=== PATIENT | male | born 1930 | race African-American/Black ===

== ENCOUNTER 2017-08-05 11:07 | Inpatient (IN) | payer MEDICARE, BC ==
[~2017-08-05] VITALS: Ht 152.4 cm; Wt 72.1 kg
[~2017-08-05 11:07] MED LIST: AVAGE30 GM; BLOOD PRESSURE PILL; KEFLEX500 MG PO; TOBRADEX ST EYE5 ML OP
[2017-08-05 11:08] VITALS: BP 145/77
[2017-08-05] MEDS ORDERED: LOSARTAN POTASS50 MG PO (11:13)
[2017-08-05 11:35] LABS: HEMATOCRIT 38.5 % (42.0-52.0); HEMOGLOBIN 12.1 gm/dL (14.0-18.0); MCH 27.5 pg (26.0-34.0); MCHC 31.6 g/dL (28.0-37.0); MCV 87.3 fL (80.0-100.0); NUCLEATED RBCS 0 /100WBC; PLATELET COUNT* 245 thou/uL (150-400); RBC 4.41 mil/uL (4.50-6.00); RDW-CV 16.4 % (10.5-14.5); WBC 14.5 thou/uL (4.0-11.0)
[2017-08-05 11:45] LABS: ANION GAP 11 mmol/L (7-16); BUN 28 mg/dL (7-18); CALCIUM 8.5 mg/dL (8.5-10.1); CHLORIDE 106 mmol/L (98-107); CO2 25 mmol/L (21-32); CREATININE 1.5 mg/dL (0.6-1.3); GLUCOSE 97 mg/dL (70-99); POTASSIUM 3.6 mmol/L (3.5-5.1); SODIUM 142 mmol/L (136-145)
[2017-08-05 11:52] LABS: ALBUMIN 3.4 g/dL (3.4-5.0); ALKALINE PHOSPHATASE 114 U/L (46-116); LIPASE 112 U/L (73-393); MAGNESIUM 2.1 mg/dL (1.8-2.4); SGOT 41 U/L (15-37); SGPT 21 U/L (30-65); TOTAL BILIRUBIN 0.7 mg/dL (<0.1-1.0); TROPONIN-I LEVEL <0.06 ng/mL (<0.06)
[2017-08-05 11:54] LABS: ABSOLUTE LYMPHOCYTES 1.5 thou/uL (0.8-5.3); ABSOLUTE MONOCYTES 0.1 thou/uL (0.0-1.2); ABSOLUTE NEUTROPHILS 12.9 thou/uL (1.6-8.1); ATYPICAL LYMPHS 2 %; PLATELET ESTIMATE ADEQUATE
[2017-08-05 13:39] VITALS: BP 139/72
[2017-08-05 14:28] VITALS: BP 176/74
[2017-08-05 17:00] LABS: INFLUENZA A ANTIGEN None Detected (None Detect); INFLUENZA B ANTIGEN None Detected (None Detect)
--- NOTE | 2017-08-05 17:32 | NUR ---
PT ARRIVED ON UNIT FROM ER AT 1415 ASSISSTED TO BED ORIENTED TO SURROUNDINGS. PT ALERT AND ORIENTED X4 VS AND ASSESSMENT STABLE. PT DENIED ANY COMPLAINTS WILL MONITOR.
[2017-08-05 20:45] VITALS: BP 130/63
[2017-08-05 23:39] VITALS: BP 147/56
[2017-08-06 05:06] LABS: ABSOLUTE EOSINOPHILS 0.1 thou/uL (0.0-0.7); ABSOLUTE LYMPHOCYTES 1.1 thou/uL (0.8-5.3); ABSOLUTE MONOCYTES 0.6 thou/uL (0.0-1.2); ABSOLUTE NEUTROPHILS 8.9 thou/uL (1.6-8.1); BASOPHILS 0.3 %; EOSINOPHILS 0.5 %; HEMOGLOBIN 10.2 gm/dL (14.0-18.0); LYMPHOCYTES 10.6 %; MCH 28.5 pg (26.0-34.0); MCV 86.3 fL (80.0-100.0); MPV 6.9 fl. (7.2-11.1); NUCLEATED RBCS 0 /100WBC; PLATELET COUNT* 221 thou/uL (150-400); POLYS 82.6 %; RBC 3.59 mil/uL (4.50-6.00); RDW-CV 16.1 % (10.5-14.5); WBC 10.7 thou/uL (4.0-11.0)
[2017-08-06 05:13] VITALS: BP 111/60; BP 111/62; BP 140/92
[2017-08-06 05:34] LABS: CALCIUM 7.5 mg/dL (8.5-10.1); CREATININE 1.3 mg/dL (0.6-1.3); POTASSIUM 3.7 mmol/L (3.5-5.1)
--- NOTE | 2017-08-06 06:19 | NUR ---
PATIENT HAS SLEPT WELL THROUGHOUT THE NIGHT WITHOUT ANY ISSUES. NO C/O PAIN. VSS ON RA. PATIENT HAS BEEN INCONTINENT OF URINE THROUGHOUT THE SHIFT AND SON CARE PERFORMED. IV IN RIGHT AC-NS @ 100ML/HR. IV ABT GIVEN WITHOUT ANY ADVERSE SIDE EFFECTS NOTE. PATIENT EATING AND DRINKING WELL. NO BM NOTED THIS SHIFT. PATIENT INSTRUCTED TO USE CALL LIGHT WHEN NEEDING ASSISTANCE. HOURLY ROUNDS MADE. WILL CONTINUE WITH PLAN OF CARE AND NURSING TO MONITOR.
[2017-08-06 08:00] VITALS: BP 145/58
[2017-08-06 11:49] LABS: URINE BILIRUBIN NEGATIVE (Negative); URINE BLOOD 1+ (Negative); URINE CLARITY CLOUDY; URINE COLOR YELLOW; URINE GLUCOSE-RANDOM NEGATIVE (Negative); URINE KETONES NEGATIVE (Negative); URINE NITRITE-REFLEX NEGATIVE (Negative); URINE PROTEIN NEGATIVE (Negative); URINE SPECIFIC GRAVITY 1.025 (1.005-1.030); URINE UROBILINOGEN 0.2 E.U./dl (0.2-1.0)
[2017-08-06 11:50] LABS: URINE LEUKOCYTES-REFLEX 2+ (Negative)
[2017-08-06 12:06] LABS: CASTS None Seen /LPF (None Seen); URINE RBC 0-2 Rare /HPF (0-2); URINE WBC-REFLEX >25 Many /HPF (0-5); WBC CLUMPS Moderate (None Seen)
[2017-08-06 12:07] LABS: CALCIUM OXALATE 4-10 Moderate /LPF (None Seen); SQUAMOUS 0-3 Few /LPF (0-3)
--- NOTE | 2017-08-06 13:06 | EKG ---
[place] [address] ELECTROCARDIOGRAM REPORT Name: BERENICEKAYLEIGH I Room: [address] ADM IN .R.#: [id number] Admission: 08/05/17 Attend Phys: Alexis Woodard MD Discharge: Date of : 32 Report #: [id number] THIS REPORT FOR: //name// [facility] ED Test Date: 2017-08-05 Test Time: 11:13:22 Pat Name: KAYLEIGH NG Department: Room: [facility] Gender: M Construction Mgr: MS : 1930 Requested By: Paul Taylor Order Number: [id number] MD: Raymundo Alaniz Measurements Intervals [place] Rate: 74 P: 2 NJ: 226 QRS: -7 QRSD: 87 T: 30 QT: 398 QTc: 442 Interpretive Statements Sinus rhythm Prolonged [place] interval Probable left atrial enlargement Nonspecific ST depression, anterior leads Minimal ST elevation, anterior leads No previous ECG available for comparison Electronically Signed On 08-06-2017 13:06:40 QUALITY ASSURANCE TESTER by Raymundo Alaniz [email or web address] <ELECTRONICALLY SIGNED> By: Raymundo Alaniz MD, FACLorna 08/06/17 1306 1113 1113 Raymundo Alaniz MD, [facility] /EPI
--- NOTE | 2017-08-06 15:21 | NUR ---
CM SPOKE TO THE PATIENT TO DISCUSS HOME SITUATION, DISCHARGE PLANNING, AND TO INFORM OF THE ROLE OF CM. PATIENT ALERT, BUT FORGETFUL. PATIENTS DTR AT THE BEDSIDE AND ANSWERING QUESTIONS FOR HIM. PATIENT RESIDES AT HOME WITH HIS AND DTR. PATIENT ABLE TO BATH HIMSELF INDEPENDENTLY UP UNTIL A FEW DAYS PRIOR TO ADMISSION. PATIENTS DTR STATES THAT THE PATIENT HAS TWO FALLS WITH IN THE LAST WEK. PATIENT USES A WALKER OR CANE FOR MOBILITY AT HOME, BUT USES A WHEELCHAIR IN PUBLIC OR FOR LONG DISTANCES. PATIENT HAS NO HX OF OR SNF. CM INFORMED THE PATIENT AND HIS DTR ABOUT DR GIL'S RECOMMENDATION OF SNF PLACEMENT AT DISCHARGE. PATIENT DTR STATES THAT THE PATIENTS WILL BE THE ONE MAKING THAT DECISION AND SHE WILL COME TO THE HOSPITAL LATER ON TODAY. CM PROVIDED THE PATIENT AND HIS DTR WITH A SNF LIST AND INFORMED THAT CM WILL FOLLOW-UP TO DISCUSS CHOICE OF SNF PLACEMENT. CM WILL REMAIN AVAILABLE TO ASSIST AND FOLLOW NEEDED.
[2017-08-06 16:00] VITALS: BP 153/67
--- NOTE | 2017-08-06 18:32 | NUR ---
ASSUMED CARE OF PT AT 0730. PT CONTINUES TO BE ALERT AND COOPERATIVE. PT HAS HAD NO C/O PAIN OR DISCOMFORT TODAY. PT IS DIFFICULT TO UNDERSTAND D/T SLURING AND MUMBELING WHEN HE TALKS, MOST LIKELY RELATED TO AGE AND DEMENTIA. PT HAS AHD A GOOD APPETITE AND AT GREATER THAN 90% OF ALL MEALS TODAY. PT VOIDONG VIA URINAL BUT DID HAVE 2 EPISODES OF INCONT OF BLADDER. PT CURRENTLY OFF UNIT FOR MRI. NURSING WILL CONTINUE TO MONITOR.
[2017-08-06 21:00] VITALS: BP 142/63
[2017-08-07 00:11] VITALS: BP 149/66
--- NOTE | 2017-08-07 05:13 | NUR ---
PATIENT HAS REMAINED ALERT AND ORIENTED X 2-3 THROUGHOUT THE SHIFT, FORGETFUL, PLEASANT AND COOPERATIVE. USING URINAL INDEPENDENTLY. DECLINING FULL TURNS. IS SELF ADJUSTING TO SOME DEGREE. HAS DENIED PAIN. IVF'S AND ANTIBIOTICS PER ORDERS. NOTING PATIENT SPITTING PHELGM IN TISSUES OVERNIGHT. OCCASSIONAL LOOSE COUGH. VITAL SIGNS STABLE. CONTINUE TO MONITOR.
[2017-08-07 08:33] VITALS: BP 154/78
--- NOTE | 2017-08-07 12:34 | NUR ---
SPOKE WITH ,RICCARDO,ON PHONE. DISCUSSED DICHARGE PLANNING. SHE WAS AGREEABLE TO SNF AND POSSIBLY [facility]. SHE WOULD LIKE CM TO MAKE A REFERRAL TO [facility]. SPOKE WITH [facility] AND FAXED REFERRAL TO HER. SHE WILL REVIEW.
--- NOTE | 2017-08-07 13:34 | NUR ---
[facility] HERE TO VISIT PT. SHE SAID MEDICALLY THEY CAN ACCEPT PT. THEY ARE CHECKING TO SEE IF HE HAS USED ANY MEDICARE INSURANCE DAYS AT ANY OTHER SKILLED FACILITY. SHE WILL CALL CM BACK.
[2017-08-07 16:05] VITALS: BP 148/75
--- NOTE | 2017-08-07 18:57 | NUR ---
ASSUMED CARE OF PATIENT AFTER MORNING REPORT. ALERT AND ORIENTED X2-3. ASSESSMENT COMPLETED AND IS CHARTED. VSS ON ROOM AIR. PATIENT HAS HAD NO COMPLAINTS OF PAIN OR NAUSEA THIS SHIFT. ANTIBIOTICS INFUSED ORDERED. HOURLY ROUNDS HAVE BEEN MAINTAINED. CALL LIGHT IS WITHIN REACH. NURSING WILL CONTINUE TO MONITOR.
[2017-08-07 21:00] VITALS: BP 202/91
[2017-08-08 00:38] VITALS: BP 174/79
[2017-08-08 04:06] VITALS: BP 142/66
--- NOTE | 2017-08-08 05:26 | NUR ---
PATIENT RESTED QUIETLY IN BED DURING NIGHT. NO C/O N/V OR PAIN. B/P ELEVATED AND DR NOTIFIED. NEW ORDERS DONE AND HELPFUL. PLEASANT AND COOPERATIVE WITH STAFF. INCONTINENT OF URINE. CALL LIGHT WITHIN REACH. WILL CONTINUE TO MONITOR.
[2017-08-08 08:00] VITALS: BP 146/67
[2017-08-08] MEDS ORDERED: AMPICILLIN TRI250 MG PO (10:06)
--- NOTE | 2017-08-08 11:11 | NUR ---
EVELIN SPOKE WITH [facility] ON HER CELL PHONE. SHE SAID THE MEDICARE VERIFICATION LINE WAS DOWN YESTERDAY SO COULD NOT VERIFY MEDICARE FOR PT. SHE WOULD LIKE FOR PT.'S TO CALL HER TO CONFIRM PT.HAS MEDICARE AND SECONDARY INSURANCE. AFTER SHE HEARS FROM ,THEY COULD ACCEPT PT. TO A SNF BED FIRST THEN IF DECIDED HE COULD GO TO A LTC BED THERE. EVELIN CALLED RICCARDO AT HOME. GAVE HER [facility]'S PHONE NUMBER. SHE SAID SHE WOULD CALL HER SHORTLY. EVELIN WILL WAIT TO HEAR BACK FROM [facility].
--- NOTE | 2017-08-08 16:20 | NUR ---
CALLED [facility] BACK. SHE SAID SHE HAD SPOKE TO . VERIFIED THEY HAVE MEDICARE AND ARE NOT CHANGING TO ANY OTHER INSURANCE AT THE FIRST OF THE YEAR. [facility] SAID THEY CAN ACCEPT PT.TO A SNF BED BUT TOLD HER HE'S NOT GOING ANYWHERE UNTIL THURSDAY. CM CALLED AT HOME. SAID 'I WANT HIM TO STAY UNTIL THURSDAY. IT IS INCONVENIENT FOT HER TO COME TO THE HOSPITAL. ALL MY CHILDREN ARE BUSY AND I DON'T EXPECT THEM TO BRING ME UP THERE' EXPLAINED ALTHOUGH, I KNOW SHE WANTS TO BE HERE WITH HIM, IT IS NOT NECESSARY FOR HER TO BE HERE WHEN HE GOES TO [facility]. EXPLAINED SHE MAY LOOSE THE BED AT [facility] IF PT.DOES NOT DISCHARGE TODAY. DISCUSSED PT.NOT MEETING INPT.CRITERIA TO BE IN HOSPITAL. SHE JUST KEPT SAYING ,NO HE NEEDS TO STAY UNTIL THURSDAY. EXPLAINED DISCHARGE APPEAL PROCESS AND GAVE HER NUMBER TO [facility]. SHE SAID SHE WOULD CALL RIGHT AWAY.
--- NOTE | 2017-08-08 16:29 | NUR ---
NOTIFIED OF 'S INTENTION OF APPEALING DISCHARGE SHE DOES NOT WANT HIM TO LEAVE UNTIL THURSDAY. TO CALL . PT.'S COULD NOT HEAR OVER THE PHONE. SHE ASKED THAT HE CALL DAUGHTER TARA. FRIEND OF TARA'S IN ROOM VISITING PT. SHE GAVE ME PHONE NUMBER OF [phone]. CM CALLED TARA FOR . EXPLAINED SITUATION. SHE SAID SHE WOULD DISCUSS WITH HER MOM BUT IT WOULD BE ABOUT AN HR. BEFORE SHE COULD DO SO, SHE WAS PICKING UP HER GRANDSON. [facility] NOTIFIED ON WORK CELL ([phone].) SHE SAID PT.COULD COME TOMORROW TO THEIR FACILITY IF CHANGES HER MIND ABOUT APPEAL. NURSING NOTIFIED.
--- NOTE | 2017-08-08 16:51 | NUR ---
TRANSFERRED PATIENT FROM ROOM 105 UP TO ROOM 310 AT 1600. CALL LIGHT IS WITHIN REACH. NURSING WILL CONTINUE TO MONITOR.
--- NOTE | 2017-08-08 18:45 | NUR ---
ASSUMED CARE OF PATIENT AFTER MORNING REPORT. ALERT AND ORIENTED X4. ASSESSMENT COMPLETED AND IS CHARTED. VSS ON ROOM AIR. PATIENT HAS HAD NO COMPLAINTS OF PAIN OR NAUSEA THIS SHIFT. PATIENT WAS SUPPOSED TO DISCHARGE TO [facility] THIS AFTERNOON AND ALL PAPERWORK WAS COMPLETED. THERE WAS SOME CONFUSION ABOUT WHEN THE PATIENT WAS SUPPOSED TO DISCHARGE AND THE PATIENT REMAINED HERE FOR THE EVENING. PATIENT SHOULD DISCHARGE TOMORROW TO [facility]. HOURLY ROUNDS HAVE BEEN MAINTAINED. CALL LIGHT IS WITHIN REACH. NURSING WILL CONTINUE TO MONITOR.
[2017-08-08 20:00] VITALS: BP 139/61
--- NOTE | 2017-08-09 04:53 | NUR ---
Alert and oriented x 4. He denies pain or nausea. Vitals are stable. He is voiding adequately. He uses the urinal but does spill so he needs help. Hehas slept well.
[2017-08-09 08:15] VITALS: BP 128/62
[2017-08-09 09:51] VITALS: BP 128/62
--- NOTE | 2017-08-09 12:18 | NUR ---
REPORT CALLED TO TESSIE AT [facility]. FAMILY HERE WITH PATIENT NOW, SPOKE WITH TARA ON THE PHONE AND SHE STATED THAT ONCE HER SISTER AND MOTHER WERE THERE TRANSPORTATION COULD BE SET UP. CALLED [facility] AND THEY WILL PICK PATIENT UP AROUND 1. CALLED SMITH AT [facility] WELL TO INFORM HER OF DISCHARGE AND TRANSPORT TIME.
--- NOTE | 2017-08-09 13:43 | NUR ---
PATIENT DISCHARGED TO [facility] AT THIS TIME. BELONGINGS SENT. FAMILY WITH PATIENT. TRANSPORTED VIA WHEELCHAIR VAN.
--- NOTE | 2017-08-28 20:10 | CON ---
[address] [address] CONSULTATION Name: KAYLEIGH NG I Room: [address] IN M.R.#: [id number] Admission: 08/05/17 Attend Phys: Alexis Woodard MD Discharge: 08/09/17 Date of : 32 Report #: [id number] THIS REPORT FOR: //name// CC: Alexis Rodrigues Kamryn DATE OF SERVICE: 08/06/2017 HISTORY OF PRESENT ILLNESS: This is an 86-year-old male patient who was seen by me yesterday. I tried to reach the family and was not able to reach the family. I was able to talk to the family today and this is a combined note from yesterday and today. Yesterday, the patient was not very responsive but today, the patient does respond reasonably well. Family gives a history that the patient has a history of neuropathy. He follows up at [facility] with Dr. Saleh. 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 His leg weakness became worse. He had some stuttering speech and then, he improved to some extent. It is not clear whether he is completely back to his baseline. When this episode occurred, his weakness was severe and it occurred without any trauma. REVIEW OF SYSTEMS: Indicate that he has a history of gout. They think his joints were swollen when it happened. He did have some back pain, but back pain is better. His mobility has been very poor for more than 1 year. He does have some memory issues but whether he has been diagnosed with dementia or is not is not very clear 14-point review of system was carried out from the family. They do not think there is any contraindication for doing an MRI. They do not think he has any ENT, cardiac, respiratory, GI, , muscular, constitutional, dermatological, hematological, psychiatric, throat, allergic symptom which is new and associated with present symptomatology. PAST MEDICAL HISTORY: Positive for what they describe as a neuropathy. FAMILY HISTORY: Negative for early age stroke. SOCIAL HISTORY: He has a very supportive family. He does not smoke or drink any alcohol. PHYSICAL EXAMINATION: NEUROLOGICAL: Indicate he is alert. He is responsive. He can tell me what month it is. He knows which hospital he is in. His speech looks at his baseline now and memory and fund of knowledge is diminished but looks baseline. Cranial nerve examination 2 through 12 is unremarkable. He moves all 4 extremities, but appeared to be somewhat weak in all 4 extremities, especially on the right side. His position sense is intact. His reflexes are diminished but symmetrically. There is no cerebellar sign. [place] [address] CONSULTATION Name: KAYLEIGH NG I Room: [address] [place] [facility].#: [id number] Admission: 08/05/17 Attend Phys: Alexis Woodard MD Discharge: 08/09/17 Date of : 32 Report #: [id number] tried to look at the fundus, but he cannot cooperate. GENERAL: He is a reasonably well-developed individual who does not have any dysmorphic features of eyes, ears and face. HEENT: His vision and hearing looks adequate. NECK: He does not have any thyroid mass or carotid bruit. His cardiac examination does not appear to be showing any definite abnormality of the heart sounds or arrhythmias or murmur. RESPIRATORY: He does have a few rhonchi, but does not appear to be in any respiratory distress. EXTREMITIES: His pulses are palpable and he has no edema, cyanosis or jaundice. VITAL SIGNS: His blood pressure is 153/67, respiration is 18, pulse is 71 and temperature is 98.5. LABORATORY DATA: His white count now is 10.7. When he came in, it was 14.5. His thyroid and B12 is normal. He did have a CT scan of the head when he came in and that was unremarkable except for chronic changes. IMPRESSION: This patient has numerous medical problems and neurological problems. He does appear to have a neuropathy the cause of that is not clear. 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 He does appear to have some cognitive impairment, which fluctuate. I do not know what happened when this patient had this spell. That needs to be addressed further. He is a little bit weaker on the right side and therefore a stroke need to be excluded. I will also exclude a spine lesion. He does have a history of foreign body in the hand, but family does not believe there is any contraindication for that MRI. I will ask the MRI people to check on that. RECOMMENDATIONS: I had a long talk with the patient and the family. I discussed with them that we will go ahead and do an MRI and EEG as an initial testing. We will get him evaluated by physical therapy and further workup will depend upon that. If the family is unable to handle him, then he may have to go to a shelter. I do not know what workup we will get from the [facility]. If he does not get one, then we may have to do a neuropathy panel on this patient. Thank you very much for this referral. <ELECTRONICALLY SIGNED> By: Hamilton Anderson MD 08/28/172009 1645 [id number] dominick Gregory
--- NOTE | 2017-08-28 20:10 | EEG ---
[address] [address] EEG STUDY REPORT Name: KAYLEIGH NG Edis Room: [address]#: [id number] Admission: 08/05/17 Attend Phys: Alexis Woodard MD Discharge: 08/09/17 Date of : 32 Report #: [id number] THIS REPORT FOR: //name// CC: Alexis Rodrigues Kamryn DATE OF SERVICE: 08/07/2017 This patient's EEG was done because of altered mental status. EEG was done by placing the electrodes by standard 10/20 system of electrode placement. Both referential and sequential montages were used for recording. Background activity in this patient's EEG is about 8 Hz and 30 microvolt. This patient went to sleep that is associated with bilaterally symmetrical sleep spindle and vertex sharp waves. Photic stimulation is unremarkable. Throughout the record, no active epileptiform activity was noticed. IMPRESSION: This EEG is intermixed with moderate amount of slowing. That is a nonspecific abnormality, which can occur with dementia, encephalopathy, effect of psychotropic medication, etc. Clinical correlation is recommended. Thank you very much for this referral. <ELECTRONICALLY SIGNED> By: Hamilton Anderson MD 08/28/172009 0950 Kaye Anderson MD /nt
== END 2017-08-09 13:58 | DRG 177 ==
LOC: M.ERS 11:07 → M.TBA-ER 12:02 → M.ORTHSURG 12:02 → M.3W 08-08 16:05
PROVIDERS: Emergency Medicine; ADMIT Internal Medicine
DX: J69.0 Pneumonitis due to inhalation of food and vomit (principal); E43 Unspecified severe protein-calorie malnutrition; N17.0 Acute kidney failure with tubular necrosis; R65.10 Systemic inflammatory response syndrome (SIRS) of non-infectious origin without acute organ dysfunction; N39.0 Urinary tract infection, site not specified; I10 Essential (primary) hypertension; E86.0 Dehydration; M10.9 Gout, unspecified; M19.90 Unspecified osteoarthritis, unspecified site; G31.84 Mild cognitive impairment of uncertain or unknown etiology; W18.39XA Other fall on same level, initial encounter; Z68.31 Body mass index [BMI] 31.0-31.9, adult; Y93.89 Activity, other specified; Y92.89 Other specified places as the place of occurrence of the external cause; Y99.8 Other external cause status